=== PATIENT | male | born 1945 | race Caucasian/White ===

== ENCOUNTER 2017-09-16 05:07 | Inpatient (IN) ==
[~2017-09-16 05:07] MED LIST: Ipratropium/Albuterol Neb 3 ML IH ONE; methylPREDNISolone 125 MG/2 ML VIAL IVP ONE
[2017-09-16] MEDS ORDERED: 0.9 % Sodium Chloride 1,000 ML IVC ONE (05:16)
[2017-09-16] MEDS ORDERED: *HR* Metoprolol 5 MG/5 ML VIAL IVP ONE (05:16)
--- NOTE | 2017-09-16 05:20 | Emergency Department Note ---
Disposition Clinical Impression: Atrial fibrillation with RVR, COPD exacerbation, Severe sepsis Pneumonia Qualifiers: Pneumonia type: due to unspecified organism Laterality: bilateral Lung location : lower lobe of lung Qualified Code(s): J18.9 - Pneumonia, unspecified organism Disposition: Admitted As Inpatient Condition: Serious Referrals: NONE,PCP [Primary Care Provider] - Forms: ED Satisfaction Letter Time of Disposition: 06:28 SOB HPI - General Chief Complaint: ED Shortness of Breath/Dyspnea Stated Complaint: SOB Time Seen by Provider: 09/16/17 05:07 Source: EMS Mode of arrival: ambulatory Limitations: no limitations Nursing Notes Reviewed: Yes Vital Signs Reviewed: Yes - History of Present Illness 72-year-old male with shortness of breath history of COPD on oxygen at baseline , patient comes in with shortness of breath via EMS his heart rate was racing the 170s given duo nebs in route. The patient states that he has been having some low-grade fevers no productive cough patient has had worsening shortness of breath with exertion does have a history of atrial fibrillation is on a blood thinner. Patient reports that he is on a blood thinner for what he thinks is a rapid heart rate but does not know what is called. He denies chest pain does have shortness of breath and chest tightness he rates a 2 out of 10 denies hemoptysis, melena, hematochezia. Pt Subjective Complaint: shortness of breath Onset (ago): minute(s) Severity: mild Consistency/Duration: constant Improves with: nothing Worsens with: nothing Known history of: COPD Associated symptoms: Reports: fever, cough, wheezing, sputum production. Denies : orthopnea, lower extremity pain Treatment prior to arrival: none Cough present: Yes Cough Description: Voluntary - Related Data Allergies Allergy/AdvReac Type Severity Reaction Status Date / Time No Known Allergies Allergy Verified 09/16/17 05:16 All systems ED: reviewed and negative except as stated. Review of Systems: As Per HPI Constitutional: Reports: fever. Denies: chills Eyes: Denies: eye pain ENT ED: Denies: ear pain Cardiovascular: Denies: chest pain, palpitations Respiratory: Reports: as per HPI, cough, dyspnea, wheezes. Denies: hemoptysis Gastrointestinal: Denies: abdominal pain, nausea Genitourinary: Denies: urgency Musculoskeletal: Denies: back pain Integumentary: Denies: rash Neurological: Denies: headache Psychiatric: Denies: anxiety, depression Endocrine: Denies: fatigue Past Medical History - Past Medical History Attestation: Yes The following information was validated with the patient. Source: patient Medical history: Reports: atrial fibrillation - Social History Smoking Status: Former smoker Smokeless Tobacco Status: Yes Alcohol use: Reports: occasionally Drug use: Reports: none Physical Exam Constitutional: Moderate respiratory distress tachycardic irregularly irregular Eyes: PERRLA, sclera anicteric ENT & Mouth: MMM Neck: normal inspection, neck is supple Resp: Coarse inspiratory andexpiratory wheezes. CV: Irregularly irregular tachycardia no m/g/r GI: normal inspection, soft, no guarding or rigidity Neuro: A&O3, CNII-XII grossly intact, HADLEY Skin: on limited exam, skin intact with no rashes or lesions - General General appearance: alert, in distress Course Course Narrative: 72-year-old male with shortness of breath appears to be in COPD exacerbation and atrial fibrillation ulcer concern for multifocal atrial tachycardia patient will be given a liter fluid Lopressor - Reevaluation(s) Reevaluation #1: After evaluation patient still tachycardic in the 120s 130s given Cardizem bolus and drip his rate has improved to the 90s so appears to be in atrial fibrillation chest x-ray was negative but his lactate was markedly elevated at 4 likely due to rate but with elevated BNP and lactate will get it CT of the chest to evaluate for other pathology occult pneumonia versus PE plan is for admission to hospital service patient was accepted by Dr. Mixon Time: 06:33 Reevaluation #2: CT showed no evidence of pneumonia patient did have an elevated BNP mechanical secondary to rate and tachycardia lactate was also elevated time lactate was reordered blood cultures were ordered Levaquin started empirically no evidence of true pneumonia until CTA was coming back at 645 at this time there is possible atypical pneumonia therefore the patient does meet criteria for possible sepsis with elevated lactate him in for severe sepsis we will recheck lactat Antibiotics Cardizem drip is continuing Time: 06:50 Vital Signs Temperature 98 F 09/16/17 05:07 Pulse Rate 160 09/16/17 05:07 Respiratory Rate 22 09/16/17 05:07 Blood Pressure 166/111 09/16/17 05:07 O2 Sat by Pulse Oximetry 97 09/16/17 05:07 Temperature 98 F 09/16/17 05:07 Pulse Rate 108 09/16/17 06:29 Respiratory Rate 18 09/16/17 06:29 Blood Pressure 131/81 09/16/17 06:29 O2 Sat by Pulse Oximetry 92 09/16/17 06:29 Oxygen Delivery Oxygen Delivery Nasal Cannula Shortness of Breath/Dyspnea - Differential Diagnosis Likely: acute exacerbation of chronic obstructive airways disease, congestive heart failure, pneumonia, pulmonary embolism - Medical Records Medical records reviewed: Yes I reviewed the patient's medical records. - Lab Data Lab results reviewed: Yes I reviewed the patient's lab results. Result diagrams: 09/16/17 05:10 09/16/17 05:10 Lab Results 09/16/17 09/16/17 09/16/17 Range/Units 05:10 05:10 05:10 WBC 10.8 (4.3-11.1) K/mcL RBC 4.39 (4.19-5.50) M/mcL Hgb 10.8 L (12.9-16.9) g/dL Hct 36.9 L (37.5-50.1) % MCV 84.1 (83.0-100.0) fL MCH 24.6 L (28.0-33.3) pg MCHC 29.3 L (31.6-35.5) g/dL RDW 16.5 H (11.5-14.5) % Plt Count 190 (140-400) K/mcL MPV 10.7 (9.4-12.4) fL Immature Gran % 0.5 (0-4) % Seg Neutrophils % 80.1 % Lymphocytes % 6.9 % Monocytes % 11.8 % Eosinophils % 0.4 % Basophils % 0.3 % Neutrophils # 8.7 (1.6-8.9) K/mcL Lymphocytes # 0.8 (0.6-4.6) K/mcL Monocytes # 1.3 (0.0-1.3) K/mcL Eosinophils # 0.0 (0.0-0.6) K/mcL Basophils # 0.0 (0.0-0.2) K/mcL Sodium 138 (136-145) mEq/L Potassium 3.9 (3.5-5.1) mEq/L Chloride 103 (98-107) mEq/L Carbon Dioxide 25 (23-29) mEq/L BUN 13 (8-23) mg/dL Creatinine 1.01 (0.70-1.30) mg/dL Est GFR ( Amer) > 60 (> 60) Est GFR (Non-Af Amer) > 60 (> 60) BUN/Creatinine Ratio 13 (6-26) Glucose 130 H (70-105) mg/dL Calculated Osmolality 288 (280-300) Lactic Acid 4.1 H* (0.5-2.2) mmol/L Calcium 8.8 (8.6-10.3) mg/dL Troponin I 0.03 (< 0.04) ng/mL B-Natriuretic Peptide (Less than 100) pg/mL 09/16/17 Range/Units 05:10 WBC (4.3-11.1) K/mcL RBC (4.19-5.50) M/mcL Hgb (12.9-16.9) g/dL Hct (37.5-50.1) % MCV (83.0-100.0) fL MCH (28.0-33.3) pg MCHC (31.6-35.5) g/dL RDW (11.5-14.5) % Plt Count (140-400) K/mcL MPV (9.4-12.4) fL Immature Gran % (0-4) % Seg Neutrophils % % Lymphocytes % % Monocytes % % Eosinophils % % Basophils % % Neutrophils # (1.6-8.9) K/mcL Lymphocytes # (0.6-4.6) K/mcL Monocytes # (0.0-1.3) K/mcL Eosinophils # (0.0-0.6) K/mcL Basophils # (0.0-0.2) K/mcL Sodium (136-145) mEq/L Potassium (3.5-5.1) mEq/L Chloride (98-107) mEq/L Carbon Dioxide (23-29) mEq/L BUN (8-23) mg/dL Creatinine (0.70-1.30) mg/dL Est GFR ( Amer) (> 60) Est GFR (Non-Af Amer) (> 60) BUN/Creatinine Ratio (6-26) Glucose (70-105) mg/dL Calculated Osmolality (280-300) Lactic Acid (0.5-2.2) mmol/L Calcium (8.6-10.3) mg/dL Troponin I (< 0.04) ng/mL B-Natriuretic Peptide 1165 H (Less than 100) pg/mL - Radiology Data Radiology results reviewed: Yes I reviewed the patient's radiology results. Chest X-Ray 09/16/17 05:07 IMPRESSION: No acute disease. D/ / Mina Koo MD / Mina Koo MD Interpreting Provider: Mina Koo MD Chest X-Ray 09/16/17 05:07 IMPRESSION: No acute disease. D/ / Mina Koo MD / Mina Koo MD Interpreting Provider: Mina Koo MD Chest CTA 09/16/17 05:53 IMPRESSION: 1. No central pulmonary embolus. Beyond the central level the study is considered nondiagnostic. 2. Bilateral airspace disease probably represents atypical pneumonia. D/ / Mina Koo MD / Mina Koo MD Interpreting Provider: Mina Koo MD - EKG Data EKG attestation: Yes I reviewed and interpreted this EKG. Rate: Reports: tachycardia (Tachycardia 143 rate QRS 98 QTc 355 atrial fibrillation with no acute ischemic changes) ST segment depression in: Reports: v5, v6 Critical Care Time Critical Care Time: Yes Total Critical Care Time: 45 Attestation: Critical care performed: Time is exclusive of separately billable procedures. Time includes: direct patient care, patient reassessment, coordination of patient care, interpretation of data (laboratory data, radiology data, and respiratory data), review of patient's medical records, medical consultation and documentation of patient care. Procedures included in critical care time: Procedures excluded from critical care time: Attestation Statement - Attestation Attestation: Andrea Gill MD, personally evaluated this patient and discussed their management with the resident physician. I reviewed the resident's note and agree with the documented findings, medical decision making, and plan of care. 72-year-old male presents to the emergency department by ambulance with a complaint of shortness of breath tonight. He states he has had increased shortness of breath for a while but acutely worse tonight. Some increased cough with dark sputum. No fever. He denies chest pain or palpitations. Patient was in atrial fibrillation with RVR on arrival. He states he has a history of an irregular heartbeat and is on blood thinners for this but does not know what type of blood thinner he takes. On examination patient is a well-developed well-nourished elderly male in mild respiratory distress. He is alert and oriented 3. There is no cyanosis or diaphoresis. Breath sounds are equal bilaterally with diffuse bilateral tight expiratory wheezes. Heart is tachycardic and irregularly irregular. Abdomen is soft with normal bowel sounds. EKG shows atrial fibrillation with RVR. Heart rate 143. ST depression in V4 through V6, likely rate related. Labs reviewed. Chest x-ray negative. CTA of the lungs shows no evidence of central pulmonary embolism. There is bilateral airspace disease, likely atypical pneumonia. Patient received Lopressor 5 mg IV with minimal improvement in his tachycardia. He then received IV Cardizem bolus followed by IV Cardizem infusion. The hospitalist, Dr. Mixon, was consulted and accepted admission of the patient.
[2017-09-16 05:21] LABS: Basophils % 0.3 %; Eosinophils % 0.4 %; Hematocrit 36.9 % (37.5-50.1); Hemoglobin 10.8 g/dL (12.9-16.9); Immature Granulocytes % 0.5 % (0-4); Lymphocytes # 0.8 K/mcL (0.6-4.6); Lymphocytes % 6.9 %; Mean Corpuscular HGB Conc 29.3 g/dL (31.6-35.5); Mean Corpuscular Hemoglobin 24.6 pg (28.0-33.3); Mean Corpuscular Volume 84.1 fL (83.0-100.0); Mean Platelet Volume 10.7 fL (9.4-12.4); Monocytes # 1.3 K/mcL (0.0-1.3); Monocytes % 11.8 %; Neutrophils # 8.7 K/mcL (1.6-8.9); Platelet Count 190 K/mcL (140-400); Red Blood Count 4.39 M/mcL (4.19-5.50); Red Cell Distribution Width 16.5 % (11.5-14.5); Segmented Neutrophils % 80.1 %
[2017-09-16 05:41] LABS: Troponin I 0.03 ng/mL (< 0.04)
[2017-09-16 05:42] LABS: BUN/Creatinine Ratio 13 (6-26); Blood Urea Nitrogen 13 mg/dL (8-23); Calcium 8.8 mg/dL (8.6-10.3); Carbon Dioxide 25 mEq/L (23-29); Chloride 103 mEq/L (98-107); Glucose 130 mg/dL (70-105); Osmolality,Calculated 288 (280-300); Potassium 3.9 mEq/L (3.5-5.1); Sodium 138 mEq/L (136-145); eGFR For African Americans > 60 (> 60); eGFR For Non-African Americans > 60 (> 60)
[2017-09-16] MEDS ORDERED: 0.9 % Sodium Chloride 1,000 ML IVC SCH (06:45)
[2017-09-16] MEDS ORDERED: Levofloxacin 750 MG/150 ML 750 MG/150 ML BAG IVPB ONE (06:45)
[2017-09-16] MEDS ORDERED: 0.9 % Sodium Chloride 1,000 ML ONE (06:47)
[2017-09-16] MEDS ORDERED: Naloxone 0.4 MG/ML INJ IVP PRN (08:49)
[2017-09-16 10:16] LABS: INR 3.3; Prothrombin Time 36.2 Seconds (9.4-12.1)
[2017-09-16 10:19] LABS: Activated Partial Thrombo Time 44.4 Seconds (26.0-36.0)
[2017-09-16 10:32] LABS: Magnesium 1.7 mg/dL (1.6-2.6)
[2017-09-16 10:33] LABS: Troponin I 0.03 ng/mL (< 0.04)
--- NOTE | 2017-09-16 12:38 | Internal Med History&Physical ---
<Saritha Gonzalez S - Last Filed: 09/16/17 12:34> Date of Encounter: 09/16/17 Time of Encounter: 12:34 Assessment and Plan (1) Atrial fibrillation with RVR Current visit: Yes Status: Acute Patient presented to the ER with a heart rate in the 170s. He was given Lopressor 5 mg 1 with little results. He was given a Cardizem bolus and started on a Cardizem drip. Troponins unremarkable EKG tachycardia atrial fibrillation with ST depression in V5 and V6 per report Cardiology consult Patient is on Coumadin therapy with an INR of 3.3. (2) COPD exacerbation Current visit: Yes Status: Acute Continue steroids Duo nebs [id number] O2 to maintain saturations greater than 92%, patient was initially on 4 L and now weaned down to 2 L. He has no home oxygen. Check Legionella and pneumococcal antigen. Check respiratory viral panel Levaquin (3) Pneumonia Current visit: Yes Status: Acute Test x-ray with no acute findings. CTA was positive per report for no pulmonary embolism but bilateral airspace disease questionably atypical pneumonia. White count 10.8. sputum and blood cultures pending continue levaquin follow temperture curve and WBC O2 to maintain sats greater than 92% Qualifiers: Pneumonia type: due to unspecified organism Laterality: bilateral Lung location: unspecified part of lung Qualified Code(s): J18.9 - Pneumonia, unspecified organism (4) Elevated brain natriuretic peptide (BNP) level Current visit: Yes Status: Acute Hold further IV fluids Echocardiogram pending Cardiology consult I's and O's and daily weight (5) Lactic acid acidosis Current visit: Yes Status: Acute Patient was found with a lactic acid of 4.1. He was given a liter fluid bolus and started on IV fluids. Lactate was rechecked at 2.7. The patient blood pressure remains elevated and temperature was afebrile. Heart rate remained elevated. We will recheck lactic acid in the a.m. Not a true sepsis picture, more likely related to AFib with RVR and COPD ex (6) DVT prophylaxis Current visit: Yes Status: Acute Patient is on Coumadin with an INR 3.3 Pharmacological dosing Monitor daily INR (7) Hyperglycemia, unspecified Current visit: Yes Status: Acute glucose 130 on admission steroid therapy check ac/hs one touches diabetic diet hgbaic monitor Internal Medicine - H&P: HPI Admitted From: Emergency Dept Plans for Post Hospital Care: Home History of present illness: Mr. Reed is a 72 year old male who states he was increasingly short of breath to the point where he could not breathe, he then presented to the emergency room. Patient has a history of COPD but no home oxygen use. He presented to the ER by EMS his heart rate was racing in the 170s. He had been given a DuoNeb in route. The patient stated he been having some low-grade fevers over the past week and felt that he may be had a flulike illness. He stated he had periods of being hot and cold and then he would sweat. He reports that he is on a blood thinner but he is not sure what it is called. He is on coumadin with INR 3.3. He did not have chest pain with the shortness of breath but states he had some chest tightness. He denies abdominal pain, diarrhea or constipation, no bleeding. No dark tarry stools, no nausea or vomiting. He states his breathing is much better now than it was when he presented to the emergency room. Past Med Surg Social Fam HX - Past Medical History Source: patient, other Medical history: atrial fibrillation, COPD Psychiatric history: no psych history - Social History Smoking Status: Former smoker Packs per day: patient stated he smoked a few cigarettes years ago Smokeless Tobacco Status: Yes (1 can weekly) Alcohol use: occasionally Drug use: none Occupational status: previously employed Current living situation: Home - Independent Activity Level: Independent ambulation Recent Out of Country Travel Within the Last 8 Weeks: No - Family History Father Living Status: Age at : 73 Cause of : Stroke Hx Family Cardiac Disorders: Yes Mother Living Status: Age at : 81 Cause of : "heart" Hx Family Cardiac Disorders: Yes Internal Medicine - H&P: Meds Albuterol Sulfate [Ventolin Hfa] 2 puff IH Q4H PRN 09/16/17 [History] Atorvastatin [Lipitor] 40 mg PO HS 09/16/17 [History] Citalopram [CeleXA] 20 mg PO DAILY 09/16/17 [History] Gabapentin [Neurontin] 300 mg PO TID 09/16/17 [History] HYDROcodone/Acet 5/325 mg [Clinton 5-325 mg] 1 tab PO Q6H PRN 09/16/17 [History] Lisinopril [Zestril] 10 mg PO DAILY 09/16/17 [History] Metoprolol [Lopressor] 50 mg PO BID 09/16/17 [History] Omeprazole [PriLOSEC] 20 mg PO DAILY 09/16/17 [History] Warfarin [Coumadin] 2.5 mg PO TUTHSA 09/16/17 [History] Warfarin [Coumadin] 5 mg PO SUMOWEFR 09/16/17 [History] amLODIPine [Norvasc] 5 mg PO DAILY 09/16/17 [History] 3 Allergy/AdvReac Type Severity Reaction Status Date / Time No Known Allergies Allergy Verified 09/16/17 05:16 All Systems PM: A 10-system review of systems was performed and is negative for pertinent findings except as documented above in the HPI. - Constitutional Constitutional: as per HPI, chills, excessive sweating, fatigue, fever(s), night sweats - EENT Eyes: no change in vision, no discharge, no pain, no photophobia Ears: no ear discharge, no ear pain, no tinnitus Nose, mouth and throat: no dysphagia, no nasal discharge, no neck pain, no sore throat - Cardiovascular Cardiovascular ROS IM: as per HPI, dyspnea on exertion, irregular heart rhythm, palpitations, other, no chest pain, no diaphoresis, no dyspnea, no lightheadedness, no syncope Additional comments: Heart was racing, not actual chest pain but chest pressure - Respiratory Respiratory: cough, dyspnea, wheezing, chest congestion, no hemoptysis, no excessive phlegm production - Gastrointestinal Gastrointestinal: no abdominal pain, no change in stool character, no diarrhea, no hematemesis, no hematochezia, no melena, no nausea, no vomiting - Genitourinary Genitourinary ROS male: no difficulty urinating, no urinary frequency, no urinary hesitancy - Musculoskeletal Musculoskeletal ROS IM: no arthralgias, no back pain, no joint swelling, no numbness, no tingling - Integumentary Integumentary IM: no rash, no unusual bruising - Neurological Neurological ROS: no confusion, no convulsions, no focal weakness, no numbness, no tingling, no tremor(s) - Hematologic/Lymphatic Hematologic/Lymphatic: no easy bruising - Constitutional Vitals: Temp Pulse Resp BP Pulse Ox 98.8 F 77 16 123/73 98 09/16/17 10:12 09/16/17 10:12 09/16/17 10:12 09/16/17 10:12 09/16/17 10:12 General appearance: Present: cooperative, mild distress, A&O X 3, pleasant, answers questions appropriately - Head Head exam: Present: atraumatic, normocephalic - Eye Eye exam: Present: PERRL, conjuntiva pink, sclera anicteric Pupils: Present: PERRL - Neck Neck exam general surgery: Present: supple, trachea midline. Absent: lymphadenopathy - Respiratory Respiratory exam: Present: decreased breath sounds, prolonged expiratory phase, wheezes. Absent: accessory muscle use, chest wall tenderness, rales, rhonchi - Cardiovascular Cardiovascular exam: Present: irregular rhythm, +S1, +S2, tachycardia. Absent: diastolic murmur, gallop, rubs, systolic murmur - GI/Abdominal GI/Abdominal exam: Present: normal bowel sounds, soft, no peritoneal signs. Absent: distended, tenderness - Extremities Exam Extremities exam: Present: pedal edema, warm, radial pulses palpable and symmetrical. Absent: calf tenderness, cyanotic Additional comments: trace pedal edema - Neurological Exam Neurological exam: Present: alert, CN II-XII intact, oriented X3, no focal deficits, strengths equal and symetr throughout. Absent: pronater drift, facial droop, speech deficit - Skin Skin exam: Present: diaphoretic, intact, normal color, warm Internal Med - H&P Results - Labs CBC & Chem 7: 09/16/17 05:10 09/16/17 05:10 Labs: Cardiac Enzymes 09/16/17 Range/Units 09:36 Troponin I 0.03 (< 0.04) ng/mL - VTE Documentation of Mechanical Device: Graduated compression elastic hosiery <Jose Le - Last Filed: 09/16/17 16:01> Date of Encounter: 09/16/17 Internal Medicine - H&P: HPI History of present illness: Mr. Reed is a 72 year old male All Systems PM: A 10-system review of systems was performed and is negative for pertinent findings except as documented above in the HPI. - Constitutional Vitals: Temp Pulse Resp BP Pulse Ox 97.8 F 93 18 161/67 94 09/16/17 15:12 09/16/17 15:12 09/16/17 15:37 09/16/17 15:12 09/16/17 15:37 Internal Med - H&P Results - Labs CBC & Chem 7: 09/16/17 05:10 09/16/17 05:10 Labs: Cardiac Enzymes 09/16/17 Range/Units 09:36 Troponin I 0.03 (< 0.04) ng/mL - Attending Attestation I have personally performed a [id number] diagnostic evaluation of this patient. My findings are as follows. This is a 72-year-old male who presented to the ER with shortness of breath along with coughing productive of whitish greenish sputum over the last 3-4 days. While in the ER he was found to be in atrial fibrillation with rapid ventricular response and has since been started on a Cardizem drip. Patient initially had a lactic Acid elevation which subsequently improved with IV fluids. He was started on Levaquin and I agree with continuing him on steroids and DuoNeb nebs [id number]. We will check Legionella and pneumococcal antigen and also a respiratory virus panel especially with PCR. His chest x-ray did not show any focal consolidation. He does not clinically appear to be in congestive heart failure. I agree with cardiology consult given his A. fib with RVR. He also is most likely on Coumadin (he did not remember which anticoagulant he was on until we checked a PT/INR ). He is supratherapeutic and we will consult pharmacy for anti-coagulation needs. I will most likely hold his INR tonight and we will follow-up tomorrow. Examination right now he does state he is significantly better as far as her shortness of breath is concerned. Does have elevated BNP level and I agree with holding off on IV fluids further. I am also hesitant to diurese him right now but we will follow cultures recommendations. Heart rate is still in the 110-120 range on the Cardizem drip. We will continue to follow with cardiology regarding the recommendations. Johnson Le September 4 PM
[2017-09-16] MEDS: Ipratropium/Albuterol Neb 3 ML IH SCH ×3 (15:33→22:13)
[2017-09-16] MEDS: MethylPREDNISolone 40 MG/ML VIAL IVP SCH (16:28)
[2017-09-16] MEDS ORDERED: *HR* HYDROcodone/Acet 5/325 mg TABLET PO PRN (17:06)
[2017-09-16] MEDS: amLODIPine 5 MG TABLET PO SCH (17:28)
[2017-09-16] MEDS: *HR* HYDROcodone/Acet 5/325 mg TABLET PO PRN (17:28)
[2017-09-16] MEDS ORDERED: *HR* Warfarin 2.5 MG TABLET PO ONE (18:00)
[2017-09-16] MEDS ORDERED: Warfarin perPT PO PRN (18:00)
[2017-09-16] MEDS: Gabapentin 300 MG CAPSULE PO SCH (21:33)
[2017-09-17] MEDS: MethylPREDNISolone 40 MG/ML VIAL IVP SCH ×3 (00:17→17:21)
[2017-09-17] MEDS: Ipratropium/Albuterol Neb 3 ML IH SCH ×4 (03:27→21:31)
[2017-09-17 05:02] LABS: Basophils % 0.1 %; Hematocrit 32.8 % (37.5-50.1); Hemoglobin 9.8 g/dL (12.9-16.9); Immature Granulocytes % 0.5 % (0-4); Lymphocytes # 0.4 K/mcL (0.6-4.6); Lymphocytes % 5.2 %; Mean Corpuscular HGB Conc 29.9 g/dL (31.6-35.5); Mean Corpuscular Hemoglobin 24.7 pg (28.0-33.3); Mean Corpuscular Volume 82.8 fL (83.0-100.0); Mean Platelet Volume 10.6 fL (9.4-12.4); Monocytes # 0.4 K/mcL (0.0-1.3); Monocytes % 4.4 %; Neutrophils # 7.5 K/mcL (1.6-8.9); Nucleated Red Blood Cells 0.2 /100 WBC (0); Platelet Count 170 K/mcL (140-400); Red Blood Count 3.96 M/mcL (4.19-5.50); Red Cell Distribution Width 16.4 % (11.5-14.5); Segmented Neutrophils % 89.8 %
[2017-09-17 05:09] LABS: INR 3.1; Prothrombin Time 33.8 Seconds (9.4-12.1)
[2017-09-17 05:17] LABS: BUN/Creatinine Ratio 24 (6-26); Blood Urea Nitrogen 19 mg/dL (8-23); Calcium 8.9 mg/dL (8.6-10.3); Carbon Dioxide 25 mEq/L (23-29); Chloride 105 mEq/L (98-107); Chol/HDL Ratio 3.8 (0-4.9); Cholesterol 100 mg/dL (< 200); Glucose 154 mg/dL (70-105); HDL Cholesterol 26 mg/dL (40-59); LDL Cholesterol,Calculated 59 mg/dL (0-99); Osmolality,Calculated 289 (280-300); Phosphorous 2.6 mg/dL (2.7-4.5); Potassium 4.1 mEq/L (3.5-5.1); Sodium 137 mEq/L (136-145); Triglycerides 75 mg/dL (< 150); eGFR For African Americans > 60 (> 60); eGFR For Non-African Americans > 60 (> 60)
[2017-09-17] MEDS: *HR* HYDROcodone/Acet 5/325 mg TABLET PO PRN ×2 (07:49→14:23)
[2017-09-17] MEDS: Gabapentin 300 MG CAPSULE PO SCH ×3 (07:50→21:55)
[2017-09-17] MEDS: amLODIPine 5 MG TABLET PO SCH (07:50)
[2017-09-17] MEDS ORDERED: Levofloxacin 750 MG/150 ML 750 MG/150 ML BAG IVPB SCH (09:00)
--- NOTE | 2017-09-17 11:56 | Cardiology Consult Note ---
<Paola Whiting - Last Filed: 09/17/17 11:52> Date of Encounter: 09/17/17 Time of Encounter: 10:00 Assessment and Plan (1) Pneumonia Current Visit: Yes Status: Acute Per cardiology: -Admitted with pneumonia. -Management per primary service. Qualifiers: Pneumonia type: due to unspecified organism Laterality: bilateral Lung location: unspecified part of lung Qualified Code(s): J18.9 - Pneumonia, unspecified organism (2) Atrial fibrillation with RVR Current Visit: Yes Status: Acute Per cardiology: -A.fib RVR noted on admission, in the setting of pneumonia. -Unknown history of a.fib, suspect not new with severe bi-atrial enlargement per TTE. -On cardizem drip and BB. -On coumadin for anticoagulation. -Average HR previous 12 hours noted to be 92, a.fib. -Will increase beta alexandria. Will discontinue cardizem drip 2 hours after increase BB given. -Will obtain previous records from primary cardiology office. (3) Valvular heart disease Current Visit: Yes Status: Acute Per cardiology: -TTE with moderate to severe aortic regurgitation and moderate to severe mitral regurgitation. -Unknown previous TTE. -Will obtain previous records from primary food service agent. -Can consider SCOTT pending review of previous records. (4) Elevated brain natriuretic peptide (BNP) level Current Visit: Yes Status: Acute Per cardiology: -BNP 1100s on admission, repeated and noted to be 500s. -Euvolemic on exam. -Denies weight gain at home. -Reports increased shortness of breath in the setting of pneumonia. -TTE with LVEF preserved, indeterminate diastolic function. -Will continue to monitor. Discussion w patient/family: The assessment and plan as outlined above was discussed with the patient who expressed understanding and agreement. All questions were answered. Thank you for involving us in the care of your patient. Please call with any questions. Discussed and reviewed with . History of Present Illness Consult date: 09/16/17 Requesting physician: Saritha Gonzalez Consult reason: a.fib RVR Chief complaint: shortness of breath History of present illness: Mr. Reed is a 72 year old male with unknown past medical history. Patient reports he has a "bad heart." However, patient is unable to further clarify if this is due to CAD, cardiomyopathy, or valvular issues. Patient denies previous history of a.fib, however he takes coumadin at home. Pateint is unclear why he takes coumadin. Patient presented to [facility] with complaints of increased shortness of breath. Denies chest pain. Denies increased edema. Denies palpitations or fluttering. Past Med Surg Social Fam HX - Past Medical History Attestation: Yes The following information was validated with the patient. Source: patient Medical history: COPD Psychiatric history: no psych history - Social History Smoking Status: Former smoker Packs per day: patient stated he smoked a few cigarettes years ago Smokeless Tobacco Status: Yes (1 can weekly) Alcohol use: occasionally Drug use: none - Family History Father Living Status: Age at : 73 Cause of : Stroke Hx Family Cardiac Disorders: Yes Mother Living Status: Age at : 81 Cause of : "heart" Hx Family Cardiac Disorders: Yes Medications and Allergies Albuterol Sulfate [Ventolin Hfa] 2 puff IH Q4H PRN 09/16/17 [History] Atorvastatin [Lipitor] 40 mg PO HS 09/16/17 [History] Citalopram [CeleXA] 20 mg PO DAILY 09/16/17 [History] Gabapentin [Neurontin] 300 mg PO TID 09/16/17 [History] HYDROcodone/Acet 5/325 mg [Millerton 5-325 mg] 1 tab PO Q6H PRN 09/16/17 [History] Lisinopril [Zestril] 10 mg PO DAILY 09/16/17 [History] Metoprolol [Lopressor] 50 mg PO BID 09/16/17 [History] Omeprazole [PriLOSEC] 20 mg PO DAILY 09/16/17 [History] Warfarin [Coumadin] 2.5 mg PO TUTHSA 09/16/17 [History] Warfarin [Coumadin] 5 mg PO SUMOWEFR 09/16/17 [History] amLODIPine [Norvasc] 5 mg PO DAILY 09/16/17 [History] 3 Allergy/AdvReac Type Severity Reaction Status Date / Time No Known Allergies Allergy Verified 09/16/17 05:16 All Systems Review: The remainder of the systems were reviewed and are negative - Cardiovascular Cardiovascular: as per HPI, dyspnea at rest, dyspnea on exertion Physical Examination Vital Signs, Last 4 Hours Temp Pulse Resp BP Pulse Ox 09/17/17 11:14 97.4 F L 67 22 139/65 95 09/17/17 10:29 16 93 General: Conversant, No Apparent Distress HEENT: Atraumatic, Normocephaly, Mucus Membranes Moist Neck: No JVD, Normal carotid pulses Cardiac: Normal S1 and S2, No Murmur, Other (Irregularly irregular) Lungs: Other (Lungs sounds with rhonchi noted bilterally. ) Neuro: Alert and responsive, No focal deficits noted Abdomen: Soft, Non-Tender Skin: No rashes noted on visualized skin Musculoskeletal: No Chest Wall Tenderness Extremities: No Clubbing, No Cyanosis, No Edema, Normal Pulses Results 09/17/17 04:39 09/17/17 04:39 Lab Results Impressions Echocardiogram 09/16/17 08:54 Impressions: LVEF 55%. Mildly dilated left ventricle. Mild concentric left ventricular hypertrophy. Indeterminate diastolic function. Mildly dilated right ventricle with normal function. Severely dilated left atrium. Severely dilated right atrium. Moderate-severe aortic regurgitation. Moderate-severe mitral regurgitation. Mild tricuspid regurgitation. Moderate-severe pulmonary hypertension. Consider cardiology evaluation and SCOTT to further evaluate valvular heart disease. Left Ventricular Wall Motion: Rest Echo Findings All wall segments showed normal motion. Findings: Study Quality * Technically adequate exam. ECG Findings * Appeared to be atrial fibrillation. Left Ventricle * LVEF 55%. * Mildly dilated left ventricle. * Mild concentric left ventricular hypertrophy. * Indeterminate diastolic function. * Right Ventricle * Mildly dilated right ventricle with normal function. Left Atrium * Severely dilated left atrium. Right Atrium * Severely dilated right atrium. Interatrial Septum * Interatrial septum not well evaluated. Aortic Valve * Trileaflet aortic valve. * Mildly sclerotic aortic valve leaflets. * Moderate-severe aortic regurgitation. * No aortic stenosis. Mitral Valve * Mild mitral annular calcification * Mildly thickened mitral valve leaflets. * Moderate-severe mitral regurgitation. * No mitral stenosis. Tricuspid Valve * Normal tricuspid valve structure. * Mild tricuspid regurgitation. * Moderate-severe pulmonary hypertension. Pulmonic Valve * Pulmonic valve not well visualized. * No pulmonic regurgitation. Aorta * Normally sized aortic root. Pericardium * The pericardium appears normal. IVC * Normal IVC dimensions and inspiratory collapse. Active Medications Hydrocodone Bitart/Acetaminophen (Mill[place] 5-325 Mg) 1 tab PO Q6H PRN PRN Reason: Severe Pain Stop: 03/18/18 17:05 Last Admin: 09/17/17 07:49 Dose: 1 tab Albuterol/Ipratropium (Duoneb) 3 ml IH [id number] [facility] Stop: 03/18/18 11:46 Last Admin: 09/17/17 10:29 Dose: 3 ml Amlodipine Besylate (Norvasc) 5 mg PO DAILY [facility] PRN Reason: Protocol Stop: 03/18/18 17:16 Last Admin: 09/17/17 07:50 Dose: 5 mg Atorvastatin Calcium (Lipitor) 40 mg PO HS [facility] Stop: 03/18/18 21:01 Last Admin: 09/16/17 21:33 Dose: 40 mg Citalopram Hydrobromide (Celexa) 20 mg PO DAILY [facility] Stop: 03/18/18 17:16 Last Admin: 09/17/17 07:50 Dose: 20 mg Gabapentin (Neurontin) 300 mg PO TID [facility] Stop: 03/18/18 21:01 Last Admin: 09/17/17 07:50 Dose: 300 mg Diltiazem HCl 125 mg/ Sodium (Chloride) 125 mls @ 5 mls/hr IVC .Q24H [facility] PRN Reason: 5 MG/HR Stop: 03/18/18 05:46 Last Admin: 09/16/17 23:32 Dose: 7.5 mg/hr, 7.5 mls/hr Levofloxacin (Levaquin) 750 mg PO DAILY [facility] Stop: 03/20/18 09:01 Lisinopril (Zestril) 10 mg PO DAILY [facility] PRN Reason: Protocol Stop: 03/18/18 17:16 Last Admin: 09/17/17 07:50 Dose: 10 mg Methylprednisolone (Solu-Medrol) 40 mg IVP Q8HR [facility] Stop: 03/18/18 16:01 Last Admin: 09/17/17 07:49 Dose: 40 mg Metoprolol Tartrate (Lopressor) 75 mg PO BID [facility] Stop: 03/19/18 21:01 Naloxone HCl (Narcan) 0.4 mg IVP Q2MIN PRN PRN Reason: SEE COMMENTS Stop: 03/18/18 08:50 Omeprazole (Prilosec) 20 mg PO DAILY [facility] PRN Reason: Protocol Stop: 03/18/18 17:16 Last Admin: 09/17/17 07:50 Dose: 20 mg Warfarin Sodium (Coumadin Perpt) 1 each PO DAILY@1800 PRN PRN Reason: SEE COMMENTS Stop: 03/18/18 18:01 Laboratory Tests 09/16/17 09/16/17 09/17/17 05:10 09:36 04:39 Hgb 9.8 L INR Potassium Creatinine Magnesium Troponin I 0.03 0.03 09/17/17 09/17/17 04:39 04:39 Hgb INR 3.1 Potassium 4.1 Creatinine 0.79 Magnesium 2.0 Troponin I - Imaging and Cardiology Chest Xray: report reviewed Echo: report reviewed - EKG Interpretation EKG results cardiology: personally reviewed (ECG with a.fib RVR, HR 143.), other (Telemetry reviewed with average HR previous 12 hours noted to be 92, a.fib. PVCS noted.) Consult Discharge Plan - Plan Referrals: NONE,PCP [Primary Care Provider] - <Alysia Jay - Last Filed: 09/17/17 15:15> Date of Encounter: 09/17/17 - Attending Attestation I examined this patient and my medical decision-making was reviewed with the COAT FITTER. I agree with the documented findings, disposition and treatment plan as described. Mr. Reed presents with atrial fibrillation RVR in setting of pneumonia. He is oriented x3 but not familiar with his detailed cardiac history. Does follow with a Electrical Contacts Adjuster at [place] - we will request records. Echo returned demonstrating severe bi-atrial enlargement - suspect AFIB is not new. He is also on coumadin for unclear reasons. At this time, we recommend increasing beta alexandria and stopping cardizem drip. Average heart rate 90's. LVEF is normal. Echo also demonstrates moderate to severe aortic and mitral regurgitation. Patient tells me he thinks he was told about this but is not sure. We are awaiting records. May consider SCOTT pending review of medical records. Assessment and Plan Discussion w patient/family: The assessment and plan as outlined above was discussed with the patient and/or family members who expressed understanding and agreement. All questions were answered. Thank you for involving us in the care of your patient. Please call with any questions. History of Present Illness History of present illness: Mr. Reed is a 72 year old male All Systems Review: The remainder of the systems were reviewed and are negative Physical Examination Vital Signs, Last 4 Hours Temp Pulse Resp BP Pulse Ox 09/17/17 11:14 97.4 F L 67 22 139/65 95 Results 09/17/17 04:39 09/17/17 04:39 Lab Results 09/17/17 09/17/17 09/17/17 04:39 04:39 04:39 WBC 8.3 Hgb 9.8 L Hct 32.8 L Plt Count 170 INR Sodium 137 Potassium 4.1 Chloride 105 Carbon Dioxide 25 BUN 19 Creatinine 0.79 Glucose 154 H Calcium 8.9 Magnesium 2.0 B-Natriuretic Peptide 569 H 09/17/17 04:39 WBC Hgb Hct Plt Count INR 3.1 Sodium Potassium Chloride Carbon Dioxide BUN Creatinine Glucose Calcium Magnesium B-Natriuretic Peptide
[2017-09-17 14:38] LABS: Adenovirus Not Detected (Not Detect); Bordetella Pertussis Not Detected (Not Detect); Chlamydophila pneumoniae Not Detected (Not Detect); Coronavirus 229E Not Detected (Not Detect); Coronavirus HKU1 Not Detected (Not Detect); Coronavirus NL63 Not Detected (Not Detect); Coronavirus OC43 Not Detected (Not Detect); Human Metapneumovirus Not Detected (Not Detect); Human Rhinovirus/Enterovirus Not Detected (Not Detect); Influenza A Subtype 2009 H1 Not Detected (Not Detect); Influenza A Untypeable Not Detected (Not Detect); Influenza B Not Detected (Not Detect); Mycoplasma pneumoniae Not Detected (Not Detect); Parainfluenza Virus 1 Not Detected (Not Detect); Parainfluenza Virus 2 Not Detected (Not Detect); Parainfluenza Virus 3 Not Detected (Not Detect); Parainfluenza Virus 4 Not Detected (Not Detect); Respiratory Syncytial Virus ***DETECTED*** (Not Detect)
--- NOTE | 2017-09-17 16:49 | Internal Med Progress Note ---
Date of Encounter: 09/17/17 Time of Encounter: 11:20 - Assessment and plan (1) Atrial fibrillation with RVR Current Visit: Yes Status: Acute Assessment and plan: Has been started on IV Cardizem drip, currently off drip. Continue by mouth Cardizem, beta alexandria has been increased per cardiology. Continue anticoagulation with Coumadin. Cardiology consult appreciated. Continue telemetry monitoring. Echocardiogram shows 55% ejection fraction, mild concentric LVH, indeterminate diastolic function, severe biatrial dilation, moderate to severe mitral and aortic regurgitation, moderate to severe pulmonary hypertension. Cardiology may consider SCOTT for further evaluation. (2) COPD exacerbation Current Visit: Yes Status: Acute Assessment and plan: Improving. CT angiogram of chest shows possible bibasal infiltrates. Taper down IV steroids as tolerated. Continue when necessary breathing treatments and supplemental oxygen. Noted to have lactic acidosis at admission, which is likely due to acute COPD rather than sepsis. Lactic acid currently normal. Respiratory infection panel positive for RSV, likely acute viral bronchitis. (3) Pneumonia Current Visit: Yes Status: Acute Assessment and plan: Continue empiric IV antibiotics-Levaquin. Supplemental oxygen and breathing treatments as needed. Blood cultures remain negative. Respiratory infection panel positive for RSV. Qualifiers: Pneumonia type: due to unspecified organism Laterality: bilateral Lung location: unspecified part of lung Qualified Code(s): J18.9 - Pneumonia, unspecified organism (4) Valvular heart disease Current Visit: Yes Status: Chronic Assessment and plan: Severe mitral regurgitation and aortic regurgitation, cardiology on board, plan as above. - Subjective Interval history: Reports improving shortness of breath; no chest pain, orthopnea, leg swelling; does have intermittent cough; no fever/chills; - Constitutional Vitals: Temp Pulse Resp BP Pulse Ox 97.2 F L 98 20 149/78 94 09/17/17 15:41 09/17/17 15:41 09/17/17 15:41 09/17/17 15:41 09/17/17 15:41 General appearance: Present: cooperative, A&O X 3, pleasant, answers questions appropriately - Respiratory Respiratory exam: Present: CTAB (B/L coarse breath sounds). Absent: accessory muscle use, rales, rhonchi, wheezes - Cardiovascular Cardiovascular exam: Present: irregular rhythm, +S1, +S2, tachycardia. Absent: diastolic murmur, gallop, rubs, systolic murmur - GI/Abdominal GI/Abdominal exam: Present: normal bowel sounds, soft, no peritoneal signs. Absent: distended, tenderness - Extremities Exam Extremities exam: Present: full ROM, warm, radial pulses palpable and symmetrical. Absent: calf tenderness, cyanotic, pedal edema - Neurological Exam Neurological exam: Present: CN II-XII intact, oriented X3, no focal deficits. Absent: pronater drift, facial droop, speech deficit - Skin Skin exam: Present: dry, intact Internal Medicine: Result - Labs CBC & Chem 7: 09/17/17 04:39 09/17/17 04:39 Labs: Short CBC 09/17/17 Range/Units 04:39 WBC 8.3 (4.3-11.1) K/mcL Hgb 9.8 L (12.9-16.9) g/dL Hct 32.8 L (37.5-50.1) % Plt Count 170 (140-400) K/mcL Neutrophils # 7.5 (1.6-8.9) K/mcL BMP 09/17/17 04:39 Sodium 137 Potassium 4.1 Chloride 105 Carbon Dioxide 25 BUN 19 Creatinine 0.79 Glucose 154 H Calcium 8.9 - ABG Interpretation ABG results: PT/INR, D-dimer PT 33.8 Seconds (9.4-12.1) H 09/17/17 04:39 - Impressions Impressions Echocardiogram 09/16/17 08:54 Impressions: LVEF 55%. Mildly dilated left ventricle. Mild concentric left ventricular hypertrophy. Indeterminate diastolic function. Mildly dilated right ventricle with normal function. Severely dilated left atrium. Severely dilated right atrium. Moderate-severe aortic regurgitation. Moderate-severe mitral regurgitation. Mild tricuspid regurgitation. Moderate-severe pulmonary hypertension. Consider cardiology evaluation and SCOTT to further evaluate valvular heart disease. Left Ventricular Wall Motion: Rest Echo Findings All wall segments showed normal motion. Findings: Study Quality * Technically adequate exam. ECG Findings * Appeared to be atrial fibrillation. Left Ventricle * LVEF 55%. * Mildly dilated left ventricle. * Mild concentric left ventricular hypertrophy. * Indeterminate diastolic function. * Right Ventricle * Mildly dilated right ventricle with normal function. Left Atrium * Severely dilated left atrium. Right Atrium * Severely dilated right atrium. Interatrial Septum * Interatrial septum not well evaluated. Aortic Valve * Trileaflet aortic valve. * Mildly sclerotic aortic valve leaflets. * Moderate-severe aortic regurgitation. * No aortic stenosis. Mitral Valve * Mild mitral annular calcification * Mildly thickened mitral valve leaflets. * Moderate-severe mitral regurgitation. * No mitral stenosis. Tricuspid Valve * Normal tricuspid valve structure. * Mild tricuspid regurgitation. * Moderate-severe pulmonary hypertension. Pulmonic Valve * Pulmonic valve not well visualized. * No pulmonic regurgitation. Aorta * Normally sized aortic root. Pericardium * The pericardium appears normal. IVC * Normal IVC dimensions and inspiratory collapse. - VTE Documentation of Mechanical Device: Graduated compression elastic hosiery Consult Discharge Plan - Plan Referrals: NONE,PCP [Primary Care Provider] -
--- NOTE | 2017-09-17 17:56 | Electrocardiograph Report ---
[place] [id number] Test Date: 2017-09-16 Pat Name: Carlos A Reed Department: 103 Room: 2A37 Gender: M [employer] Room Service Supervisor: CHUCK : 1945 Requested By: Frank Chowdhury Order Number: [id number] Reading MD: Codi Yen Measurements Intervals Watson Rate: 143 P: IA: 0 QRS: 6 QRSD: 98 T: 83 QT: 272 QTc: 355 Interpretive Statements ATRIAL FIBRILLATION WITH RAPID VENTRICULAR RESPONSE VOLTAGE CRITERIA FOR LVH ST DEVIATION AND MODERATE T-WAVE ABNORMALITY, CONSIDER LATERAL ISCHEMIA Electronically Signed On 09-17-2017 17:54:55 EST by Codi Yen
[2017-09-18] MEDS: Ipratropium/Albuterol Neb 3 ML IH SCH ×4 (03:41→22:53)
[2017-09-18 04:57] LABS: INR 3.2; Prothrombin Time 35.2 Seconds (9.4-12.1)
[2017-09-18 05:46] LABS: Basophils % 0.1 %; Hematocrit 34.9 % (37.5-50.1); Hemoglobin 10.4 g/dL (12.9-16.9); Immature Granulocytes % 0.6 % (0-4); Lymphocytes # 0.7 K/mcL (0.6-4.6); Lymphocytes % 3.5 %; Mean Corpuscular HGB Conc 29.8 g/dL (31.6-35.5); Mean Corpuscular Hemoglobin 24.8 pg (28.0-33.3); Mean Corpuscular Volume 83.1 fL (83.0-100.0); Mean Platelet Volume 10.7 fL (9.4-12.4); Monocytes % 5.5 %; Neutrophils # 16.7 K/mcL (1.6-8.9); Platelet Count 223 K/mcL (140-400); Red Cell Distribution Width 16.8 % (11.5-14.5); Segmented Neutrophils % 90.3 %
[2017-09-18] MEDS: amLODIPine 5 MG TABLET PO SCH (08:55)
[2017-09-18] MEDS: Gabapentin 300 MG CAPSULE PO SCH ×3 (08:56→19:55)
[2017-09-18] MEDS: MethylPREDNISolone 40 MG/ML VIAL IVP SCH (08:57)
[2017-09-18] MEDS ORDERED: levoFLOXacin 750 MG TABLET PO SCH (09:00)
[2017-09-18] MEDS: *HR* HYDROcodone/Acet 5/325 mg TABLET PO PRN ×2 (09:02→15:26)
--- NOTE | 2017-09-18 10:04 | Cardiology Progress Note ---
Date of Encounter: 09/18/17 Time of Encounter: 09:00 Assessment and Plan (1) Pneumonia Current Visit: Yes Status: Acute Per cardiology: -Admitted with pneumonia. -RSV positive. -Management per primary service. Qualifiers: Pneumonia type: due to unspecified organism Laterality: bilateral Lung location: unspecified part of lung Qualified Code(s): J18.9 - Pneumonia, unspecified organism (2) Atrial fibrillation with RVR Current Visit: Yes Status: Acute Per cardiology: -A.fib RVR noted on admission, in the setting of pneumonia. -Unknown history of a.fib, suspect not new with severe bi-atrial enlargement per TTE. -On cardizem drip and BB. -On coumadin for anticoagulation. -Average HR previous 12 hours noted to be 99, a.fib. -Will start cardizem CD 120mg daily. Will discontinue drip 2 hours after oral dose given. -Awaiting previous records from primary cardiology office. (3) Valvular heart disease Current Visit: Yes Status: Chronic Per cardiology: -TTE with moderate to severe aortic regurgitation and moderate to severe mitral regurgitation. -Unknown previous TTE. -Awaiting previous records from primary sorter operator. -Can consider SCOTT pending review of previous records. (4) Elevated brain natriuretic peptide (BNP) level Current Visit: Yes Status: Acute Per cardiology: -BNP 1100s on admission, repeated and noted to be 500s. -Euvolemic on exam. -Denies weight gain at home. -Reports increased shortness of breath in the setting of pneumonia. -TTE with LVEF preserved, indeterminate diastolic function. -Will continue to monitor. Discussion w patient/family: The assessment and plan as outlined above was discussed with the patient who expressed understanding and agreement. All questions were answered. Thank you for involving us in the care of your patient. Please call with any questions. Discussed and reviewed with . Subjective Principal diagnosis: RSV, pneumonia Interval history: Patient reports breathing is mildly improved today. Sheldon chest pain. Denies palpitations or fluttering. Objective Vital Signs, Last 4 Hours Temp Pulse Resp BP Pulse Ox 09/18/17 07:12 98.4 F 131 18 148/92 94 General: Conversant, No Apparent Distress HEENT: Atraumatic, Normocephaly, Mucus Membranes Moist Neck: No JVD, Normal carotid pulses Cardiac: Normal S1 and S2, No Murmur, Other (Irregularly irregular) Lungs: Other (Lung sounds coarse throughout ) Neuro: Alert and responsive, No focal deficits noted Abdomen: Soft, Non-Tender Skin: No rashes noted on visualized skin Musculoskeletal: No Chest Wall Tenderness Extremities: No Clubbing, No Cyanosis, No Edema, Normal Pulses Results 09/18/17 05:25 09/17/17 04:39 Lab Results Impressions Echocardiogram 09/16/17 08:54 Impressions: LVEF 55%. Mildly dilated left ventricle. Mild concentric left ventricular hypertrophy. Indeterminate diastolic function. Mildly dilated right ventricle with normal function. Severely dilated left atrium. Severely dilated right atrium. Moderate-severe aortic regurgitation. Moderate-severe mitral regurgitation. Mild tricuspid regurgitation. Moderate-severe pulmonary hypertension. Consider cardiology evaluation and SCOTT to further evaluate valvular heart disease. Left Ventricular Wall Motion: Rest Echo Findings All wall segments showed normal motion. Findings: Study Quality * Technically adequate exam. ECG Findings * Appeared to be atrial fibrillation. Left Ventricle * LVEF 55%. * Mildly dilated left ventricle. * Mild concentric left ventricular hypertrophy. * Indeterminate diastolic function. * Right Ventricle * Mildly dilated right ventricle with normal function. Left Atrium * Severely dilated left atrium. Right Atrium * Severely dilated right atrium. Interatrial Septum * Interatrial septum not well evaluated. Aortic Valve * Trileaflet aortic valve. * Mildly sclerotic aortic valve leaflets. * Moderate-severe aortic regurgitation. * No aortic stenosis. Mitral Valve * Mild mitral annular calcification * Mildly thickened mitral valve leaflets. * Moderate-severe mitral regurgitation. * No mitral stenosis. Tricuspid Valve * Normal tricuspid valve structure. * Mild tricuspid regurgitation. * Moderate-severe pulmonary hypertension. Pulmonic Valve * Pulmonic valve not well visualized. * No pulmonic regurgitation. Aorta * Normally sized aortic root. Pericardium * The pericardium appears normal. IVC * Normal IVC dimensions and inspiratory collapse. KUB X-Ray 09/17/17 15:17 IMPRESSION: Multiple large dilated loops of colon throughout the abdomen which are highly suspicious for obstruction. D/ / Hero Nielsen MD / Hero Nielsen MD Interpreting Provider: Hero Nielsen MD Active Medications Hydrocodone Bitart/Acetaminophen ([place] 5-325 Mg) 1 tab PO Q6H PRN PRN Reason: Severe Pain Stop: 03/18/18 17:05 Last Admin: 09/18/17 09:02 Dose: 1 tab Albuterol/Ipratropium (Duoneb) 3 ml IH [id number] [facility] Stop: 03/18/18 11:46 Last Admin: 09/18/17 03:41 Dose: 3 ml Amlodipine Besylate (Norvasc) 5 mg PO DAILY [facility] PRN Reason: Protocol Stop: 03/18/18 17:16 Last Admin: 09/18/17 08:55 Dose: 5 mg Atorvastatin Calcium (Lipitor) 40 mg PO HS [facility] Stop: 03/18/18 21:01 Last Admin: 09/17/17 21:55 Dose: 40 mg Citalopram Hydrobromide (Celexa) 20 mg PO DAILY [facility] Stop: 03/18/18 17:16 Last Admin: 09/18/17 08:55 Dose: 20 mg Diltiazem HCl (Cardizem Cd) 120 mg PO DAILY [facility] Stop: 03/20/18 10:16 Gabapentin (Neurontin) 300 mg PO TID [facility] Stop: 03/18/18 21:01 Last Admin: 09/18/17 08:56 Dose: 300 mg Diltiazem HCl 125 mg/ Sodium (Chloride) 125 mls @ 5 mls/hr IVC .Q24H [facility] PRN Reason: 5 MG/HR Stop: 03/19/18 19:46 Last Infusion: 09/17/17 23:40 Dose: 5 mg/hr, 5 mls/hr Levofloxacin/Dextrose (Levaquin Premix 750mg/150 Ml) 750 mg in 150 mls @ 100 mls/hr IVPB DAILY [facility] PRN Reason: Protocol Stop: 03/21/18 09:01 Lisinopril (Zestril) 10 mg PO DAILY [facility] PRN Reason: Protocol Stop: 03/18/18 17:16 Last Admin: 09/18/17 08:55 Dose: 10 mg Methylprednisolone (Solu-Medrol) 40 mg IVP DAILY [facility] Stop: 03/19/18 18:01 Last Admin: 09/18/17 08:57 Dose: 40 mg Metoprolol Tartrate (Lopressor) 75 mg PO BID [facility] Stop: 03/19/18 21:01 Last Admin: 03/07/18 08:56 Dose: 75 mg Naloxone HCl (Narcan) 0.4 mg IVP Q2MIN PRN PRN Reason: SEE COMMENTS Stop: 03/18/18 08:50 Omeprazole (Prilosec) 20 mg PO DAILY [facility] PRN Reason: Protocol Stop: 03/18/18 17:16 Last Admin: 09/18/17 08:56 Dose: 20 mg Warfarin Sodium (Coumadin Perpt) 1 each PO DAILY@1800 PRN PRN Reason: SEE COMMENTS Stop: 03/18/18 18:01 Laboratory Tests 09/17/17 09/18/17 09/18/17 04:39 04:38 05:25 WBC 18.5 H D Hgb 10.4 L INR 3.2 Potassium 4.1 Creatinine 0.79 Magnesium 2.0 - Imaging and Cardiology Chest Xray: report reviewed Echo: report reviewed - EKG Interpretation EKG results cardiology: other (Telemetry reviewed with average HR previous 12 hours noted to be 99, a.fib. PVCS noted.) - VTE Documentation of Mechanical Device: Graduated compression elastic hosiery Consult Discharge Plan - Plan Referrals: NONE,PCP [Primary Care Provider] -
[2017-09-18] MEDS: Diltiazem CD (24hr) 120 MG CAPSULE PO SCH (12:04)
[2017-09-18] MEDS: Benzonatate 100 MG CAPSULE PO PRN (17:35)
[2017-09-18] MEDS: predniSONE 20 MG TABLET PO SCH (17:35)
--- NOTE | 2017-09-18 22:45 | Internal Med Progress Note ---
Date of Encounter: 09/18/17 Time of Encounter: 11:00 - Assessment and plan (1) Atrial fibrillation with RVR Current Visit: Yes Status: Acute Assessment and plan: Has been restarted on IV Cardizem drip overnight, plan to wean off IV drip, start by mouth Cardizem. Continue beta alexandria. Continue anticoagulation with Coumadin. Cardiology on board. Continue telemetry monitoring. Echocardiogram shows 55% ejection fraction, mild concentric LVH, indeterminate diastolic function, severe biatrial dilation, moderate to severe mitral and aortic regurgitation, moderate to severe pulmonary hypertension. Cardiology awaiting outpatient records from cardiology office. (2) COPD exacerbation Current Visit: Yes Status: Acute Assessment and plan: Improving. Leukocytosis likely steroid-induced. Change to oral steroids. Continue when necessary breathing treatments and supplemental oxygen. Noted to have lactic acidosis at admission, which is likely due to acute COPD rather than sepsis. Lactic acid currently normal. Respiratory infection panel positive for RSV, likely acute viral bronchitis. Droplet precautions. Patient continues to require 4 L/m supplemental oxygen via nasal cannula. Plan to wean down FiO2. Home oxygen evaluation prior to discharge. (3) Pneumonia Current Visit: Yes Status: Acute Assessment and plan: Continue empiric IV antibiotics-Levaquin. Supplemental oxygen and breathing treatments as needed. Blood cultures remain negative. Respiratory infection panel positive for RSV. Qualifiers: Pneumonia type: due to unspecified organism Laterality: bilateral Lung location: unspecified part of lung Qualified Code(s): J18.9 - Pneumonia, unspecified organism (4) Valvular heart disease Current Visit: Yes Status: Chronic Assessment and plan: Severe mitral regurgitation and aortic regurgitation, cardiology on board, further recommendations pending review of outpatient records; - Subjective Interval history: Feels better. Improving cough and shortness of breath. Reports constipation, abdominal distention is improving. - Constitutional Vitals: Temp Pulse Resp BP Pulse Ox 97.7 F 99 18 137/65 98 09/18/17 21:55 09/18/17 21:55 09/18/17 21:55 09/18/17 21:55 09/18/17 21:55 General appearance: Present: cooperative, A&O X 3, pleasant, answers questions appropriately - Respiratory Respiratory exam: Present: CTAB (B/L coarse breath sounds). Absent: accessory muscle use, rales, rhonchi, wheezes - Cardiovascular Cardiovascular exam: Present: irregular rhythm, +S1, +S2, tachycardia. Absent: diastolic murmur, gallop, rubs, systolic murmur - GI/Abdominal GI/Abdominal exam: Present: distended, normal bowel sounds, soft, no peritoneal signs. Absent: tenderness - Extremities Exam Extremities exam: Present: full ROM, warm, radial pulses palpable and symmetrical. Absent: calf tenderness, cyanotic, pedal edema - Neurological Exam Neurological exam: Present: CN II-XII intact, oriented X3, no focal deficits. Absent: pronater drift, facial droop, speech deficit Internal Medicine: Result - Labs CBC & Chem 7: 09/18/17 05:25 09/17/17 04:39 Labs: Short CBC 09/18/17 Range/Units 05:25 WBC 18.5 H D (4.3-11.1) K/mcL Hgb 10.4 L (12.9-16.9) g/dL Hct 34.9 L (37.5-50.1) % Plt Count 223 (140-400) K/mcL Neutrophils # 16.7 H (1.6-8.9) K/mcL - ABG Interpretation ABG results: PT/INR, D-dimer PT 35.2 Seconds (9.4-12.1) H 09/18/17 04:38 - VTE Documentation of Mechanical Device: Graduated compression elastic hosiery Consult Discharge Plan - Plan Referrals: NONE,PCP [Primary Care Provider] -
[2017-09-19] MEDS: Ipratropium/Albuterol Neb 3 ML IH SCH ×4 (03:46→22:59)
[2017-09-19] MEDS ORDERED: Acetaminophen 325 MG TABLET PO PRN (04:32)
[2017-09-19 04:54] LABS: INR 2.4
[2017-09-19] MEDS: Levofloxacin 750 MG/150 ML 750 MG/150 ML BAG IVPB SCH (09:34)
--- NOTE | 2017-09-19 10:22 | Event Note ---
Date of Encounter: 09/19/17 Time of Encounter: 10:20 - Cardiology Event Note Awaiting records from [facility] regarding previous cardiac tetsing. Records have been requested stat. Discussed with primary RN, RN will attempt to call [facility] and have records sent. RN will page cardiology when records are available. Further cardiology recommendations pending records review.
[2017-09-19] MEDS: Gabapentin 300 MG CAPSULE PO SCH ×3 (10:50→19:50)
[2017-09-19] MEDS: predniSONE 20 MG TABLET PO SCH (10:50)
[2017-09-19] MEDS: Diltiazem CD (24hr) 120 MG CAPSULE PO SCH (10:50)
[2017-09-19 13:11] LABS: Influenza A PCR Body Fluid NOT DETECTED; Influenza B PCR Body Fluid NOT DETECTED
[2017-09-19] MEDS: Benzonatate 100 MG CAPSULE PO PRN ×2 (14:37→22:32)
--- NOTE | 2017-09-19 17:39 | Internal Med Progress Note ---
Date of Encounter: 09/19/17 Time of Encounter: 11:45 - Assessment and plan (1) Atrial fibrillation with RVR Current Visit: Yes Status: Acute Assessment and plan: Currently rate controlled. Continue metoprolol and Cardizem. Off IV Cardizem drip. Continue anticoagulation with Coumadin. Cardiology on board. Continue telemetry monitoring. Echocardiogram shows 55% ejection fraction, mild concentric LVH, indeterminate diastolic function, severe biatrial dilation, moderate to severe mitral and aortic regurgitation, moderate to severe pulmonary hypertension. Cardiology awaiting outpatient records from cardiology office. Plan of care explained to patient's neighbor/friend, at bedside; (2) COPD exacerbation Current Visit: Yes Status: Acute Assessment and plan: Improving. Continue enteral prednisone. Continue when necessary breathing treatments and supplemental oxygen. Noted to have lactic acidosis at admission , which is likely due to acute COPD rather than sepsis. Lactic acid currently normal. Respiratory infection panel positive for RSV, likely acute viral bronchitis. Droplet precautions. Home oxygen evaluation completed. [id number] encounter completed. Patient would benefit from continue supplemental oxygen at 2 L/m via nasal cannula. He is noted to be ambulatory at home, would benefit from portable home oxygen. (3) Pneumonia Current Visit: Yes Status: Acute Assessment and plan: Continue empiric IV antibiotics-Levaquin. Supplemental oxygen and breathing treatments as needed. Blood cultures remain negative. Respiratory infection panel positive for RSV. Qualifiers: Pneumonia type: due to unspecified organism Laterality: bilateral Lung location: unspecified part of lung Qualified Code(s): J18.9 - Pneumonia, unspecified organism (4) Valvular heart disease Current Visit: Yes Status: Chronic Assessment and plan: Severe mitral regurgitation and aortic regurgitation, cardiology on board, further recommendations pending review of outpatient records; (5) Essential hypertension Current Visit: Yes Status: Chronic Assessment and plan: Blood pressure noted to be uncontrolled. Increase home dose of lisinopril. Norvasc held due to duplicate calcium channel alexandria-Cardizem that has been started. - Subjective Interval history: Feels better. Improving cough and shortness of breath. Reports bowel movements; - Constitutional Vitals: Temp Pulse Resp BP Pulse Ox 97.3 F L 106 16 135/75 99 09/19/17 14:54 09/19/17 14:54 09/19/17 16:37 09/19/17 14:54 09/19/17 16:37 General appearance: Present: cooperative, A&O X 3, pleasant, answers questions appropriately - Respiratory Respiratory exam: Present: CTAB (coarse breath sounds B/L). Absent: accessory muscle use, rales, rhonchi, wheezes - Cardiovascular Cardiovascular exam: Present: irregular rhythm, +S1, +S2. Absent: diastolic murmur, gallop, rubs, systolic murmur - GI/Abdominal GI/Abdominal exam: Present: normal bowel sounds, soft, no peritoneal signs. Absent: distended, tenderness Internal Medicine: Result - Labs CBC & Chem 7: 09/18/17 05:25 09/17/17 04:39 - ABG Interpretation ABG results: PT/INR, D-dimer PT 26.0 Seconds (9.4-12.1) H 09/19/17 04:21 - VTE Documentation of Mechanical Device: Graduated compression elastic hosiery Consult Discharge Plan - Plan Additional Instructions: F/up with PCP in 1-2 weeks F/up with primary [facility] in 2-3 weeks Referrals: NONE,PCP [Primary Care Provider] - Prescriptions: Diltiazem CD (24hr) [Cardizem CD] 120 mg PO DAILY #30 cap.er.24h Levofloxacin [Levaquin] 750 mg PO DAILY #3 tablet Lisinopril [Zestril] 20 mg PO DAILY #30 tablet Metoprolol [Lopressor] 75 mg PO BID #90 tablet predniSONE [PredniSONE] 40 mg PO DAILY #10 tablet
[2017-09-19] MEDS ORDERED: *HR* Warfarin 3 MG TABLET PO ONE (18:00)
[2017-09-20] MEDS: Ipratropium/Albuterol Neb 3 ML IH SCH ×4 (03:44→21:47)
[2017-09-20 04:24] LABS: INR 2.2; Prothrombin Time 23.7 Seconds (9.4-12.1)
[2017-09-20 08:33] LABS: RSV PCR Body Fluid DETECTED; RVP Body Fluid Source NOT PROVIDED
[2017-09-20] MEDS: predniSONE 20 MG TABLET PO SCH (08:53)
[2017-09-20] MEDS: Gabapentin 300 MG CAPSULE PO SCH ×2 (08:53→17:02)
[2017-09-20] MEDS: Diltiazem CD (24hr) 120 MG CAPSULE PO SCH (08:53)
[2017-09-20] MEDS: Benzonatate 100 MG CAPSULE PO PRN (08:53)
[2017-09-20] MEDS: Levofloxacin 750 MG/150 ML 750 MG/150 ML BAG IVPB SCH (08:54)
[2017-09-20] MEDS: *HR* HYDROcodone/Acet 5/325 mg TABLET PO PRN ×2 (08:54→17:02)
[2017-09-20] MEDS ORDERED: Lisinopril 20 MG TABLET PO SCH (09:00)
--- NOTE | 2017-09-20 11:08 | Cardiology Progress Note ---
Date of Encounter: 09/20/17 Time of Encounter: 10:30 Assessment and Plan (1) Pneumonia Current Visit: Yes Status: Acute Per cardiology: -Admitted with pneumonia. -RSV positive. -Management per primary service. Qualifiers: Pneumonia type: due to unspecified organism Laterality: bilateral Lung location: unspecified part of lung Qualified Code(s): J18.9 - Pneumonia, unspecified organism (2) Atrial fibrillation with RVR Current Visit: Yes Status: Acute Per cardiology: -A.fib RVR noted on admission, in the setting of pneumonia. -Unknown history of a.fib, suspect not new with severe bi-atrial enlargement per TTE. -On cardizem and BB. -On coumadin for anticoagulation. -Average HR previous 12 hours noted to be 87, a.fib. -Cardiology will sign off, see below. (3) Valvular heart disease Current Visit: Yes Status: Chronic Per cardiology: -TTE with moderate to severe aortic regurgitation and moderate to severe mitral regurgitation. -Unknown previous TTE, however patient reports has a history of a murmur. -Awaiting previous records from primary asparagus buncher, several attempts have been made to obtain previous records. -Discussed and reviewed with Dr.John Yen, it appears these valvular issues are not new due to patient's report of known murmur. Patient has a asparagus buncher that he follows with regularly. Cardiology will sign off. Recommend patient follow with primary asparagus buncher in 1-2 weeks after discharge. Discussed need for patient to obtain TTE records to take to his asparagus buncher. Patient states understanding. (4) Elevated brain natriuretic peptide (BNP) level Current Visit: Yes Status: Acute Per cardiology: -BNP 1100s on admission, repeated and noted to be 500s. -Euvolemic on exam. -Denies weight gain at home. -Reports increased shortness of breath in the setting of pneumonia. -TTE with LVEF preserved, indeterminate diastolic function. Discussion w patient/family: The assessment and plan as outlined above was discussed with the patient who expressed understanding and agreement. All questions were answered. Thank you for involving us in the care of your patient. Please call with any questions. Discussed and reviewed with Dr.John Yen. Subjective Principal diagnosis: RSV, pneumonia Interval history: Patient reports breathing is mildly improved today. Sheldon chest pain. Denies palpitations or fluttering. Objective Vital Signs, Last 4 Hours Temp Pulse Resp BP Pulse Ox 09/20/17 10:53 97.5 F L 81 16 117/73 97 09/20/17 10:02 16 98 09/20/17 09:00 97.9 F 95 17 165/82 96 09/20/17 08:00 97.4 F L 109 16 164/89 97 General: Conversant, No Apparent Distress HEENT: Atraumatic, Normocephaly, Mucus Membranes Moist Neck: No JVD, Normal carotid pulses Cardiac: Normal S1 and S2, No Murmur, Other (Irregularly irregular) Lungs: Normal Breath Sounds, No Wheeze, Rales, Rhonchi Neuro: Alert and responsive, No focal deficits noted Abdomen: Soft, Non-Tender Skin: No rashes noted on visualized skin Musculoskeletal: No Chest Wall Tenderness Extremities: No Clubbing, No Cyanosis, No Edema, Normal Pulses Results 09/18/17 05:25 09/17/17 04:39 Lab Results Active Medications Acetaminophen (Tylenol) 650 mg PO Q6HR PRN PRN Reason: Mild Pain Stop: 03/21/18 04:33 Last Admin: 09/19/17 04:40 Dose: 650 mg Hydrocodone Bitart/Acetaminophen ([place] 5-325 Mg) 1 tab PO Q6H PRN PRN Reason: Severe Pain Stop: 03/18/18 17:05 Last Admin: 09/20/17 08:54 Dose: 1 tab Albuterol/Ipratropium (Duoneb) 3 ml IH [id number] [facility] Stop: 03/18/18 11:46 Last Admin: 09/20/17 10:02 Dose: 3 ml Atorvastatin Calcium (Lipitor) 40 mg PO HS [facility] Stop: 03/18/18 21:01 Last Admin: 09/19/17 19:50 Dose: 40 mg Benzonatate (Tessalon) 100 mg PO Q8H PRN PRN Reason: Cough Stop: 03/20/18 17:31 Last Admin: 09/20/17 08:53 Dose: 100 mg Citalopram Hydrobromide (Celexa) 20 mg PO DAILY [facility] Stop: 03/18/18 17:16 Last Admin: 09/20/17 08:53 Dose: 20 mg Diltiazem HCl (Cardizem Cd) 120 mg PO DAILY [facility] Stop: 03/20/18 10:16 Last Admin: 09/20/17 08:53 Dose: 120 mg Gabapentin (Neurontin) 300 mg PO TID [facility] Stop: 03/18/18 21:01 Last Admin: 09/20/17 08:53 Dose: 300 mg Levofloxacin/Dextrose (Levaquin Premix 750mg/150 Ml) 750 mg in 150 mls @ 100 mls/hr IVPB DAILY [facility] PRN Reason: Protocol Stop: 03/21/18 09:01 Last Admin: 09/20/17 08:54 Dose: 100 mls/hr Lisinopril (Zestril) 20 mg PO DAILY [facility] PRN Reason: Protocol Stop: 03/22/18 09:01 Last Admin: 09/20/17 08:53 Dose: 20 mg Metoprolol Tartrate (Lopressor) 75 mg PO BID [facility] Stop: 03/19/18 21:01 Last Admin: 09/20/17 08:54 Dose: 75 mg Naloxone HCl (Narcan) 0.4 mg IVP Q2MIN PRN PRN Reason: SEE COMMENTS Stop: 03/18/18 08:50 Omeprazole (Prilosec) 20 mg PO DAILY [facility] PRN Reason: Protocol Stop: 03/18/18 17:16 Last Admin: 09/20/17 08:53 Dose: 20 mg Prednisone (Prednisone) 40 mg PO DAILY [facility] Stop: 03/20/18 18:01 Last Admin: 09/20/17 08:53 Dose: 40 mg Warfarin Sodium (Coumadin Perpt) 1 each PO DAILY@1800 PRN PRN Reason: SEE COMMENTS Stop: 03/18/18 18:01 Warfarin Sodium (Coumadin) 3 mg PO ONCE ONE Stop: 09/20/17 18:01 - Imaging and Cardiology Chest Xray: report reviewed Echo: report reviewed - EKG Interpretation EKG results cardiology: other (Telemetry reviewed with average HR previous 12 hours noted to be 87, a.fib. PVCs noted.) - VTE Documentation of Mechanical Device: Graduated compression elastic hosiery Consult Discharge Plan - Plan Referrals: NONE,PCP [Primary Care Provider] -
--- NOTE | 2017-09-20 13:37 | Discharge Summary ---
- NOTES TO OUTPATIENT PROVIDER Notes to Outpatient Provider: Noted to have severe valvular abnormalities,which are chronic, needs to f/up with primary Equine Internship at [facility]; Orders not resulted at time of discharge: Pending orders 09/16/17 08:56 Legionella Antigen [RM] Routine 09/16/17 11:47 Culture,Sputum with Gram Stain [RM] Routine 09/17/17 06:00 ECG 12 lead ECG [ECG] AM 0600 09/21/17 04:00 PT/INR [Prothrombin Time INR] [COAG] AM 0400 Date of Encounter: 09/20/17 Time of Encounter: 13:35 - Discharge Diagnosis (1) Atrial fibrillation with RVR Priority: Primary Status: Acute (2) COPD exacerbation Priority: Primary Status: Acute (3) Pneumonia Priority: Primary Status: Acute Qualifiers: Pneumonia type: due to unspecified organism Laterality: bilateral Lung location: unspecified part of lung Qualified Code(s): J18.9 - Pneumonia, unspecified organism (4) Valvular heart disease Priority: Secondary Status: Chronic (5) RSV bronchitis Priority: Primary Status: Acute Hospital course: Mr. Reed is a 72 year old male with the above medical problems, who was admitted with worsening cough and shortness of breath. He was noted to be in acute exacerbation of COPD, started on supplemental oxygen, IV steroids and breathing treatments, empiric IV antibiotics. He also had atrial fibrillation with rapid ventricular response, started on IV Cardizem drip, converted to oral Cardizem CD and home dose of beta [place] was uptitrated. Cardiology was consulted. CT angiogram of chest showed no pulmonary embolism but bilateral a spaced disease, suspicious for atypical pneumonia. 2 sets of blood cultures remained negative. Respiratory infection panel was positive for RSV. Patient had mild lactic acidosis at admission, which was likely due to atrial fibrillation and acute COPD. Echocardiogram showed preserved ejection fraction, mildly dilated left ventricle , mild concentric LVH, indeterminate diastolic function, severe biatrial dilation, moderate to severe mitral and aortic regurgitation. Patient reports that he has known history of congestive heart failure and valvular abnormalities and follows with cardiology in [place]. Multiple attempts were made by cardiology service to obtain outpatient records, without success. Patient is medically and hemodynamically stable and at this time, he is being discharged with recommendations of close outpatient follow-up with primary transportation department supervisor. Discussed with patient and his neighbor, who's very close tho him , verbalized understanding. He was noted to have uncontrolled hypertension, Norvasc is stopped due to addition of duplicate calcium channel [place] -Cardizem CD; lisinopril dose has been increased. Discharge discussed with: patient, family - Time Spent with Patient Total time spent providing and/or coordinating discharge services: Greater than 30 minutes (45 min) - Discharge Medications Prescriptions: Diltiazem CD (24hr) [Cardizem CD] 120 mg PO DAILY #30 cap.er.24h Levofloxacin [Levaquin] 750 mg PO DAILY #3 tablet Lisinopril [Zestril] 20 mg PO DAILY #30 tablet Metoprolol [Lopressor] 75 mg PO BID #90 tablet predniSONE [PredniSONE] 40 mg PO DAILY #10 tablet Home Medications: Albuterol Sulfate [Ventolin Hfa] 2 puff IH Q4H PRN 09/16/17 [History] Atorvastatin [Lipitor] 40 mg PO HS 09/16/17 [History] Citalopram [CeleXA] 20 mg PO DAILY 09/16/17 [History] Gabapentin [Neurontin] 300 mg PO TID 09/16/17 [History] HYDROcodone/Acet 5/325 mg [[place] 5-325 mg] 1 tab PO Q6H PRN 09/16/17 [History] Omeprazole [PriLOSEC] 20 mg PO DAILY 09/16/17 [History] Warfarin [Coumadin] 2.5 mg PO TUTHSA 09/16/17 [History] Warfarin [Coumadin] 5 mg PO SUMOWEFR 09/16/17 [History] Diltiazem CD (24hr) [Cardizem CD] 120 mg PO DAILY #30 cap.er.24h 09/20/17 [Rx] Levofloxacin [Levaquin] 750 mg PO DAILY #3 tablet 09/20/17 [Rx] Lisinopril [Zestril] 20 mg PO DAILY #30 tablet 09/20/17 [Rx] Metoprolol [Lopressor] 75 mg PO BID #90 tablet 09/20/17 [Rx] predniSONE [PredniSONE] 40 mg PO DAILY #10 tablet 09/20/17 [Rx] Allergies/Adverse Reactions: 3 Allergy/AdvReac Type Severity Reaction Status Date / Time No Known Allergies Allergy Verified 09/16/17 05:16 Date of admission: 09/16/17 08:46 Primary care physician: PCP NONE Consults: 09/16/17 08:52 Consult to Patching Machine Operator [CONS] Routine Reason for SW Consult: home needs 09/16/17 11:39 Consult to Cardiology [CONS] Routine Comment: Consulting Provider: Cardiology Padmaja Reason for Consult: afib RVR, BNP 1165 Time Notified: 11:39 Call Completed: Yes Discharging clinician: Martita Harris Anticipated date of discharge: 09/20/17 - Constitutional Vitals: Temp Pulse Resp BP Pulse Ox 98.5 F 85 16 124/71 97 09/20/17 11:45 09/20/17 11:45 09/20/17 11:45 09/20/17 11:45 09/20/17 10:53 General appearance: Present: cooperative, A&O X 3, pleasant, answers questions appropriately - Respiratory Respiratory exam: Present: CTAB (coarse breath sounds B/L). Absent: accessory muscle use, rales, rhonchi, wheezes - Cardiovascular Cardiovascular exam: Present: RRR, +S1, +S2. Absent: diastolic murmur, gallop, rubs, systolic murmur - Patient Status Disposition: Home, Self-Care Condition: Good Functional capacity at discharge: independent ambulation Overall status at discharge: patient is progressing back to baseline - Discharge Instructions Follow Up With: NONE,PCP [Primary Care Provider] - Additional Instructions: F/up with PCP in 1-2 weeks F/up with primary Equine Internship in 2-3 weeks - Diet and Activity Activity: resume usual activities as tolerated, wear oxygen at all times Diet: low fat, low cholesterol, low salt diet - VTE Documentation of Mechanical Device: Graduated compression elastic hosiery
[2017-09-20 15:13] VITALS: BP 149/74
[2017-09-20] MEDS ORDERED: *HR* Warfarin 3 MG TABLET PO ONE (18:00)
== END 2017-09-20 18:35 | disposition home or self-care (01) | DRG 308 ==
LOC: EMEROO 05:07 → 2ANU 05:07 → SUATTDRO 08:46
PROVIDERS: ADMIT Hospitalist; ATTEND Internal Medicine